=== PATIENT | female | born 1980 | race Asian ===

== ENCOUNTER 2019-01-08 06:28 | Day surgery (SDC) | payer BC ==
[2019-01-08] MEDS ORDERED: PROPOFOL 40 ML (07:51)
[2019-01-08] MEDS ORDERED: LIDOCAINE 2% (SDV) 5 ML INJ (07:51)
[2019-01-08] MEDS ORDERED: CLINDAMYCIN 600 MG/D5W (PMX) 50 ML IVPB (07:51)
[2019-01-08] MEDS ORDERED: FENTAnyl 50 MCG/ML VIAL (07:52)
[2019-01-08] MEDS ORDERED: MIDAZOLAM 1 MG/ML 2 ML INJ IV (08:30)
[2019-01-08] MEDS ORDERED: OXYCODONE/ACETAMINOPHEN (5/325) TAB PO ×2 (08:30)
[2019-01-08] MEDS ORDERED: HYDROmorphONE 1 MG/5 ML IV SYRINGE IV ×3 (08:30)
[2019-01-08] MEDS ORDERED: ONDANSETRON 4 MG INJ IV (08:30)
[2019-01-08] MEDS ORDERED: MEPERIDINE 25 MG INJ IV (08:30)
[2019-01-08] MEDS: LIDOCAINE 2% (MDV) 20 ML INJ (08:56)
[2019-01-08] MEDS: BUPIVACAINE 0.5% (SDV) 30 ML INJ (08:56)
== END 2019-01-08 12:15 | disposition home or self-care (01) ==
LOC: SDS 06:28
DX: S63.287D Dislocation of proximal interphalangeal joint of left little finger, subsequent encounter (principal); X58.XXXD Exposure to other specified factors, subsequent encounter
CPT/HCPCS: 26860; 73130-LT